=== PATIENT | female | born 1950 | race Caucasian/White ===

== ENCOUNTER 2022-03-26 05:43 | Observation (INO) ==
[~2022-03-26 05:43] MED LIST: Naloxone 0.4 mg VIAL 0.4 mg/ml 1 ml VIAL IV PRN; Ondansetron 4 mg VIAL 2 MG/ML 2 ml VIAL IV PRN; fentaNYL 100 mcg/2 ml 50 MCG/ML VIAL IV PRN
[2022-03-26] MEDS ORDERED: Buffered Lidocaine 1% SYRIN 1 ml INTRADERM ONE (06:00)
[2022-03-26] MEDS ORDERED: Lactated Ringers 1000 ml BAG 1,000 ML IV SCH (06:00)
[2022-03-26] MEDS ORDERED: ceFAZolin 2 GM in NS PREMIX 2 GM/100 ML BAG IVPB ONE (06:13)
[2022-03-26] MEDS ORDERED: Midazolam 2 mg/2 ml VIAL 1 mg/ml 2 ml VIAL (2 mg) ONE (06:59)
[2022-03-26] MEDS ORDERED: Propofol 10 MG/ML 20 ML BTL ONE (06:59)
[2022-03-26] MEDS ORDERED: fentaNYL 100 mcg/2 ml 50 MCG/ML VIAL ONE ×2 (06:59→07:35)
[2022-03-26] MEDS ORDERED: Lidocaine 2% PF 5 ML VIAL ONE (06:59)
[2022-03-26] MEDS ORDERED: Ropivacaine 5 MG/ML 20 ML VIAL 0.5% (100 MG) ONE (07:05)
[2022-03-26] MEDS ORDERED: Ondansetron 4 mg VIAL 2 MG/ML 2 ml VIAL ONE (08:02)
[2022-03-26] MEDS ORDERED: Glycopyrrolate IV 0.2 MG/ML 1 ML VIAL ONE (08:05)
[2022-03-26] MEDS ORDERED: Dexamethasone IV 4 MG/ML VIAL 1 ml VIAL ONE (08:11)
[2022-03-26] MEDS ORDERED: Phenylephrine IV 10 MG/ML 1 ml VIAL ONE (08:39)
[2022-03-26] MEDS ORDERED: Magnesium Hydroxide LIQ 30 ML UDC PO PRN (09:08)
[2022-03-26] MEDS ORDERED: Ondansetron 4 mg VIAL 2 MG/ML 2 ml VIAL IV PRN (09:08)
[2022-03-26] MEDS ORDERED: Morphine 2 MG/ML SYRINGE IV PRN (09:08)
[2022-03-26] MEDS ORDERED: Lactulose 30 ml UDC PO PRN (09:08)
[2022-03-26] MEDS: Lactated Ringers 1000 ml BAG 1,000 ML IV SCH ×2 (11:50→22:10)
[2022-03-26] MEDS: ceFAZolin 1 GM ADVAN 1 GM in NS 0.9% 50 ML 50 ML IVPB SCH (16:57)
[2022-03-26] MEDS: Magnesium Hydroxide LIQ 30 ML UDC PO SCH (22:08)
[2022-03-27] MEDS: ceFAZolin 1 GM ADVAN 1 GM in NS 0.9% 50 ML 50 ML IVPB SCH ×2 (00:06→10:15)
[2022-03-27 06:10] LABS: Hematocrit 30 % (35-47); Hemoglobin 10.4 g/dL (12.0-16.0); Mean Platelet Volume 7.5 fL (7.4-10.4); Platelet Count 203 10^3/uL (150-450)
[2022-03-27 06:37] LABS: Calcium 8.8 mg/dL (8.6-10.3); Potassium 4.2 mmol/L (3.5-5.0); eGFR CKD-EPI 54.9 (>60)
[2022-03-27] MEDS: Ondansetron ODT 4 mg TAB 4 MG TAB PO PRN ×2 (07:29→13:31)
[2022-03-27] MEDS ORDERED: Lactated Ringers 500 ml BAG 500 ML IV ONE (08:35)
[2022-03-27] MEDS ORDERED: Vitamin THERAPEUTIC TAB PO SCH (09:00)
[2022-03-27] MEDS: Magnesium Hydroxide LIQ 30 ML UDC PO SCH (10:01)
[2022-03-27 11:04] VITALS: BP 110/67
[2022-03-27 12:40] LABS: Calcium 8.4 mg/dL (8.6-10.3); Potassium 4.3 mmol/L (3.5-5.0); eGFR CKD-EPI 58.8 (>60)
== END 2022-03-27 14:55 | disposition home or self-care (01) ==
LOC: SSU 05:43 → OR 05:43 → EDSTATUS 10:45
PROVIDERS: ADMIT Orthopaedic Surgery Adult Reconstructive Orthopaedic Surgery; ATTEND Orthopaedic Surgery Adult Reconstructive Orthopaedic Surgery

== ENCOUNTER 2022-04-05 16:04 | Inpatient (IN) ==
[2022-04-05 17:49] LABS: ABS Lymphocytes 0.8 10^3/ul (1.0-4.8); ABS Monocytes 1.1 10^3/ul (0-0.8); Eosinophil % 0.2 %; Hematocrit 17 % (35-47); Hemoglobin 5.4 g/dL (12.0-16.0); Lymphocyte % 4.9 %; Mean Corpuscular HGB Conc 32 g/dL (31-36); Mean Corpuscular Hemoglobin 30 pg (27-31); Mean Corpuscular Volume 93 fL (80-97); Mean Platelet Volume 6.9 fL (7.4-10.4); Platelet Count 443 10^3/uL (150-450); Red Blood Count 1.81 10^6 /uL (3.70-4.87); Red Cell Distribution Width 13 % (10-15); White Blood Count 16.9 10^3/uL (3.5-10.8)
[2022-04-05 18:30] LABS: Albumin 3.3 g/dL (3.2-5.2); Albumin/Globulin Ratio 1.3 (1-3); Calcium 8.5 mg/dL (8.6-10.3); Globulin 2.6 g/dL (2-4); Total Bilirubin 0.7 mg/dL (0.2-1.0); Total Protein 5.9 g/dL (6.4-8.9); eGFR CKD-EPI 68.3 (>60)
[2022-04-05] MEDS ORDERED: Iohexol 350 (CONTRAST) 500 ML MDV IV ONE (18:47)
[2022-04-05 18:53] LABS: INR 1.23 (0.89-1.11)
[2022-04-05] MEDS ORDERED: Prothrombin Complex Conc. DOSE = Units Factor IX (nine) IV SLOW PU ONE (19:58)
[2022-04-05] MEDS ORDERED: NS 0.9% 1000 ml BAG 1,000 ML IV.FLUID IV ONE (20:51)
[2022-04-06 00:09] LABS: Hematocrit 19 % (35-47); Hemoglobin 6.3 g/dL (12.0-16.0)
[2022-04-06 05:04] LABS: Hematocrit 23 % (35-47); Hemoglobin 7.6 g/dL (12.0-16.0)
[2022-04-06 08:19] LABS: Hematocrit 23 % (35-47); Hemoglobin 7.5 g/dL (12.0-16.0)
[2022-04-06] MEDS ORDERED: Heparin 2 UNITS/ML IVPREMIX 3,000 UNIT/1,500 ML BAG IV ONE (10:50)
[2022-04-06] MEDS ORDERED: Iohexol 350 (CONTRAST) 100 ML PAK IV ONE (10:50)
[2022-04-06] MEDS ORDERED: Lidocaine 1% MPF 5 ML VIAL ONE (10:50)
[2022-04-06] MEDS ORDERED: Midazolam 5 mg/5 ml VIAL 1 mg/ml 5 ml VIAL (5 mg) ONE (10:56)
[2022-04-06] MEDS ORDERED: fentaNYL 100 mcg/2 ml 50 MCG/ML VIAL ONE (10:56)
[2022-04-06 16:22] LABS: Hematocrit 25 % (35-47); Hemoglobin 8.4 g/dL (12.0-16.0)
[2022-04-06] MEDS ORDERED: NS 0.9% 500 ml BAG 500 ML IV ONE (19:36)
[2022-04-06 21:06] LABS: Hematocrit 24 % (35-47); Hemoglobin 8.1 g/dL (12.0-16.0)
[2022-04-07 03:27] LABS: ABS Eosinophils 0.2 10^3/ul (0-0.6); ABS Lymphocytes 1.3 10^3/ul (1.0-4.8); ABS Monocytes 1.1 10^3/ul (0-0.8); ABS Neutrophils 9.7 10^3/ul (1.5-7.7); Eosinophil % 1.9 %; Hematocrit 24 % (35-47); Hemoglobin 7.8 g/dL (12.0-16.0); Lymphocyte % 10.7 %; Mean Corpuscular HGB Conc 33 g/dL (31-36); Mean Corpuscular Hemoglobin 29 pg (27-31); Mean Corpuscular Volume 89 fL (80-97); Mean Platelet Volume 6.8 fL (7.4-10.4); Platelet Count 382 10^3/uL (150-450); Red Blood Count 2.69 10^6 /uL (3.70-4.87); Red Cell Distribution Width 16 % (10-15); White Blood Count 12.4 10^3/uL (3.5-10.8)
[2022-04-07 04:04] LABS: Calcium 8.3 mg/dL (8.6-10.3); Potassium 3.8 mmol/L (3.5-5.0)
[2022-04-07 04:09] LABS: eGFR CKD-EPI 76.4 (>60)
[2022-04-07 07:25] LABS: Magnesium 1.9 mg/dL (1.9-2.7)
[2022-04-07 09:25] LABS: Hematocrit 24 % (35-47)
[2022-04-07 15:06] LABS: Hematocrit 24 % (35-47)
[2022-04-07] MEDS ORDERED: Enoxaparin 40 MG/0.4 ML SYR SUBCUT SCH (20:00)
[2022-04-07 20:25] LABS: Hematocrit 24 % (35-47); Hemoglobin 7.8 g/dL (12.0-16.0)
[2022-04-08 05:33] LABS: ABS Basophils 0.1 10^3/ul (0-0.2); ABS Eosinophils 0.2 10^3/ul (0-0.6); ABS Monocytes 0.9 10^3/ul (0-0.8); ABS Neutrophils 8.2 10^3/ul (1.5-7.7); Eosinophil % 2.3 %; Hematocrit 24 % (35-47); Hemoglobin 8.4 g/dL (12.0-16.0); Lymphocyte % 9.7 %; Mean Corpuscular HGB Conc 34 g/dL (31-36); Mean Corpuscular Hemoglobin 31 pg (27-31); Mean Corpuscular Volume 89 fL (80-97); Mean Platelet Volume 7.1 fL (7.4-10.4); Nucleated Red Blood Cells % 0.1; Platelet Count 388 10^3/uL (150-450); Red Blood Count 2.74 10^6 /uL (3.70-4.87); Red Cell Distribution Width 16 % (10-15); White Blood Count 10.4 10^3/uL (3.5-10.8)
[2022-04-08 05:44] LABS: Calcium 8.4 mg/dL (8.6-10.3); Potassium 3.9 mmol/L (3.5-5.0)
[2022-04-08 05:50] LABS: eGFR CKD-EPI 81.2 (>60)
[2022-04-08] MEDS ORDERED: Magnesium Hydroxide LIQ 30 ML UDC PO PRN (08:27)
[2022-04-08] MEDS ORDERED: NS 0.9% 1000 ml BAG 1,000 ML IV ONE (12:15)
[2022-04-08] MEDS ORDERED: Magnesium Sulfate 2 gm BAG 2 GM/50 ML BAG IVPB ONE (13:17)
[2022-04-08] MEDS ORDERED: Enoxaparin 40 MG/0.4 ML SYR SUBCUT SCH (14:00)
[2022-04-08] MEDS ORDERED: Enoxaparin 30 MG/0.3 ML SYR SUBCUT ONE (16:37)
[2022-04-08 18:45] LABS: Magnesium 1.8 mg/dL (1.9-2.7)
[2022-04-08] MEDS: Senna TAB 8.6 mg TAB PO PRN (20:34)
[2022-04-09 07:27] LABS: ABS Basophils 0.1 10^3/ul (0-0.2); ABS Eosinophils 0.2 10^3/ul (0-0.6); ABS Lymphocytes 0.8 10^3/ul (1.0-4.8); ABS Monocytes 0.8 10^3/ul (0-0.8); ABS Neutrophils 6.5 10^3/ul (1.5-7.7); Eosinophil % 2.5 %; Hematocrit 25 % (35-47); Hemoglobin 8.2 g/dL (12.0-16.0); Lymphocyte % 9.9 %; Mean Corpuscular HGB Conc 33 g/dL (31-36); Mean Corpuscular Hemoglobin 30 pg (27-31); Mean Corpuscular Volume 91 fL (80-97); Mean Platelet Volume 6.9 fL (7.4-10.4); Platelet Count 411 10^3/uL (150-450); Red Blood Count 2.72 10^6 /uL (3.70-4.87); Red Cell Distribution Width 15 % (10-15); White Blood Count 8.4 10^3/uL (3.5-10.8)
[2022-04-09 08:00] LABS: Calcium 8.5 mg/dL (8.6-10.3); Potassium 3.9 mmol/L (3.5-5.0); eGFR CKD-EPI 93.1 (>60)
[2022-04-09] MEDS: Senna TAB 8.6 mg TAB PO PRN (09:34)
[2022-04-09 13:15] VITALS: BP 117/66
== END 2022-04-09 12:18 | disposition home or self-care (01) | DRG 982 ==
LOC: MEDTELE 16:04 → ED 16:04
PROVIDERS: ADMIT Hospitalist; ATTEND Hospitalist